=== PATIENT | female | born 1950 | race Caucasian/White ===

== ENCOUNTER 2020-03-09 14:04 | Outpatient (CLI) | payer MEDICARE, SELFPAY ==
--- NOTE | ~2020-03-09 | XR_ITS ---
XR shoulder RT min 2V, XR shoulder LT min 2V 03/09/2020 14:34 Indication: Shoulder pain Procedure: 4 views of each shoulder Comparison: 06/17/2006 Findings: There is moderate osteoarthritis of the right glenohumeral joint. There is anatomic alignme nt of the left shoulder without significant degenerative change. No fracture or traumatic malalignmen t. Visualized lung parenchyma is unremarkable. No significant soft tissue abnormality. No radiopaque foreign bodies. Impression: 1: Moderate osteoarthritis of the right glenohumeral joint. Reviewed, dictated and finalized at location B. Impression: 1: Moderate osteoarthritis of the right glenohumeral joint. Impression: 1: Moderate osteoarthritis of the right glenohumeral joint.
--- NOTE | ~2020-03-09 | XR_ITS ---
XR clavicle BI DATE: 03/09/2020 14:34 INDICATION: Fall downstairs. Bilateral clavicle and right shoulder pain TECHNIQUE: AP and angled AP views COMPARISON: None FINDINGS: There is osteopenia. No fracture or dislocation of either clavicle. IMPRESSION: No evidence of clavicle fracture Reviewed, dictated and finalized at location A.
== END 2020-03-09 14:05 | disposition home or self-care (01) ==
PROVIDERS: PCP Family Medicine; Visit Provider Family Medicine
DX: M25.512 Pain in left shoulder (principal); M19.011 Primary osteoarthritis, right shoulder
CPT/HCPCS: 73000; 73030

== ENCOUNTER → 2020-04-20 12:44 | Outpatient (CLI) | payer MEDICARE, SELFPAY ==
--- NOTE | ~2020-04-20 | US_ITS ---
EXAMINATION: US renal BI DATE: 04/20/2020 13:07 INDICATION: Nonspecific abnormal results of function study of kidney. TECHNIQUE: Multiple ultrasound grayscale images of the kidneys were obtained. COMPARISON: None. FINDINGS: The right kidney measures 10.0 x 4.7 x 4.2 cm. The left kidney measures 9.0 x 4.4 x 4.0 cm. The kidne ys demonstrate normal parenchymal echogenicity. There is no hydronephrosis. The bladder is normal. IMPRESSION: 1. Normal kidney sizes. No hydronephrosis. Reviewed, dictated and finalized at location B.
== END ==
PROVIDERS: PCP Family Medicine; Visit Provider Internal Medicine Nephrology
DX: R94.4 Abnormal results of kidney function studies (principal)
CPT/HCPCS: 76775

== ENCOUNTER 2022-07-10 16:35 | Emergency (ER) | payer MEDICARE, SELFPAY ==
--- NOTE | ~2022-07-10 | XR_ITS ---
XR lumbar spine 2-3V DATE: 07/10/2022 17:22 INDICATION: Low back pain after lifting injury TECHNIQUE: AP, lateral, coned lateral lumbosacral views COMPARISON: None FINDINGS: There is diffuse osteopenia. There is mild rotatory dextro scoliosis of the lumbar spine. There is suggestion of a transitional lumbosacral vertebra with lumbarization on the left and sacrali zation on the right. There is prominent asymmetric sclerosis along the right sacroiliac area and late ral elements in the lumbosacral spine. Asymmetric sclerosis may be due to very severe degenerative ch brayan at the right sacral iliac joint. Past fracture is not excluded. There is mild to moderate loss of height and mild anterior wedging at L1 consistent with L1 compressi on fracture of uncertain age. There is prominent degenerative change at the apophyseal joints in the lower lumbar levels. Associate d grade 1 anterolisthesis at L4-5. There is degenerative disc disease, moderate at L1-2, mild at L2-3 L3-4, L4-5 and more prominent at L 5-S1. IMPRESSION: L1 compression fracture Osteopenia Degenerative changes Reviewed, dictated and finalized at location A. PATHIC DOCTOR
[2022-07-10 16:45] VITALS: BP 154/64; PULSE 70; RESP 18; TEMP 36.5; O2SAT 100
--- NOTE | 2022-07-10 17:04 | ED.BACK ---
HPI - Back Pain/Injury General Chief Complaint: Back Pain/Injury Stated Complaint: Rt Hip and Lower Back Pain Time Seen by Provider: 07/10/22 16:52 Source: patient Mode of arrival: ambulatory Limitations: no limitations History of Present Illness HPI Narrative: Patient presents today complaining of right-sided low back pain that started yesterday after lifting a heavy door and feeling a pop. Denies radiation of pain. Denies numbness or tingling in the extremities or genitals. Denies any loss of bowel or bladder control. She currently rates her pain 06/03 and has been taking her home [place] with mild short-term relief. Related Data Home Medications Medication Instructions Recorded Confirmed ezetimibe 10 mg tablet 10 mg PO DAILY 07/10/22 07/10/22 gabapentin 300 mg capsule 300 mg PO DAILY 07/10/22 07/10/22 hydrochlorothiazide 25 mg tablet 25 mg PO DAILY 07/10/22 07/10/22 Allergies Allergy/AdvReac Type Severity Reaction Status Date / Time No Known Allergies Allergy Verified 05/09/22 12:24 Review of Systems Review of Systems: CONSTITUTIONAL: Denies body aches, fever, chills, or sweats. EYES: Denies visual changes, redness, or discharge. ENT: Denies rhinorrhea, congestion, sore throat, or otalgia. CARDIOVASCULAR: Denies chest pain, palpitations, or edema. RESPIRATORY: Denies cough or dyspnea. GASTROINTESTINAL: Denies abdominal pain, nausea, vomiting, or diarrhea. GENITOURINARY: Denies dysuria or hematuria. SKIN: Denies rash, itching, or wounds. MUSCULOSKELETAL: Denies joint pain, or myalgia.+ back pain NEUROLOGIC: Denies headache, numbness, tingling, or weakness. PSYCH: Denies depression or anxiety. [facility] Past Medical History Medical History Anxiety disorder, unspecified BMI 25.0-25.9,adult Changing skin lesion Decreased right shoulder range of motion Essential (primary) hypertension Hip pain, bilateral Insomnia Leg cramp Leg cramp Leg edema Low kidney function Mixed hyperlipidemia Need for vaccination Tobacco abuse Unilateral primary osteoarthritis, unspecified knee Visual disturbance Social History Social History Smoking packs per day: 1 Smoking cigarettes per day: 20.0 Years smoked: 50 Smoking pack-years: 50.00 Smoking status: Current every day smoker Tobacco type: cigarettes Alcohol intake: former Substance use: never Substance use type: does not use Gender identity (if verbalized by the patient): Female Sexual Orientation (if Verbalized by the Patient): Straight or Heterosexual Spiritual care concerns: No Agree to blood products: Yes Comments At time of signature, I have reviewed and agree with nursing past medical, surgical, social and family history unless otherwise noted. Please see nursing chart for further information. There is no relevant family history pertinent to the presenting complaint Exam Narrative: GENERAL: Chronically ill-appearing, well-nourished, and in no acute distress. HEAD: Normocephalic, atraumatic. EYES: EOMI. No redness or drainage. Conjunctivae normal. ENT: Mucous membranes pink and moist. NECK: Normal AROM. CHEST: No respiratory distress. MUSCULOSKELETAL: Very mild bony tenderness of the upper lumbar spine. Patient has right upper lumbar and lower thoracic paraspinal muscle tenderness, lesser to the left side. This tenderness does not extend distally to the hip/gluteals. Distal sensation intact. Saddle sensation intact. Capillary refill normal. EXTREMITIES: Normal range of motion. No edema. SKIN: Warm, dry, no rash. Capillary refill normal. Normal skin turgor. NEURO: No focal deficits. Alert and oriented x3. Gait steady with cane. PSYCH: Normal affect. No signs of depression or anxiety. Course Course Level of Care: Express Care Visit Vital Signs Vital signs: Vital Signs Temperature 97.7 F 07/10/22
== END 2022-07-10 18:00 | disposition home or self-care (01) ==
PROVIDERS: Emergency Provider Nurse Practitioner; PCP Family Medicine
DX: S32.010A Wedge compression fracture of first lumbar vertebra, initial encounter for closed fracture (principal); X50.0XXA Overexertion from strenuous movement or load, initial encounter; I10 Essential (primary) hypertension; M17.10 Unilateral primary osteoarthritis, unspecified knee; F17.210 Nicotine dependence, cigarettes, uncomplicated
CPT/HCPCS: 72100; 99213; G0463

== ENCOUNTER 2024-10-28 12:31 | Outpatient (CLI) | payer MEDICARE, SELFPAY ==
--- NOTE | ~2024-10-28 | DEXA_ITS ---
Bone Density Report Name: MYA GODOY Age: 74 Sex: Female Ethnicity: White Date of : 1950 Indication: postmenopausal; screening for osteoporosis; height loss; prior fracture; Referring Provider: BIBIANA ARRIETA Study: Bone densitometry was performed. Exam Date: October 28, 2024 Accession number: [id number] Bone Density: Region BMD T-score Z-score Classification AP Spine(L1-L4) 0.960 -0.8 1.6 Normal Femoral Neck (Left) 0.670 -1.6 0.5 Osteopenia Total Hip (Left) 0.658 -2.3 -0.5 Osteopenia World Health Organization criteria for BMD impression classify patients as: Normal (T-score at or above -1.0), Osteopenia (T-score between -1.0 and -2.5), or Osteoporosis (T-score at or below -2.5). Clinical Information Provided by Patient: Have had a previous hip or vertebral fracture Has had a low trauma fracture Smokes Patient maximum height was 66 Menopause Age: 49 No regular weight bearing exercise Does not regularly consume dairy products Onset of menses at age 12 Number of children 2 Impression: The patient has low bone mass, based on the Left Total Hip T-score. The patient has risk factors, including: smoking, previous fracture. Discussion: INCREASED RISK OF FRACTURE DUE TO HISTORY OF FRACTURE. The patient's previous fracture puts the patient at high risk of a future fracture. In untreated patients, the risk of osteoporotic fracture increases approximately two-fold for each 1.0 SD decrease in T-score. Low bone density is not the only risk factor for fracture; also consider factors such as patient's age, frailty or poor health, risk of falling, risk of injury, previous osteoporotic fracture, family history of osteoporosis, cigarette smoking, low body weight, etc. Not everyone with a low trauma fracture has osteoporosis; osteomalacia and other metabolic bone disorders should also be considered. Patients who have osteoporosis should be evaluated for specific diseases and conditions (secondary causes) that may cause or contribute to bone loss and fracture risk. National Osteoporosis Foundation (NOF) recommends pharmacologic intervention for patients with a prior hip or vertebral fracture regardless of BMD T-score. The patient should follow a healthful lifestyle (good nutrition with adequate calcium and vitamin D, and appropriate weight-bearing exercise). Follow-Up: Consider a repeat BMD and Vertebral Fracture Assessment (VFA) exam in 2 years or sooner if medically necessary, to reassess this patient's status. Reported by: ROBERTO CARLOS on 10/28/2024 12:56:00 PM. Reviewed, dictated and finalized at location A. [facility]
--- OUTSIDE RECORDS SUMMARY | 2024-10-28 13:43 | XMS_ITS | Clinical Summary ---
Author Organization [facility] Address [address] [place] [address] Phone Care Team Providers Care Window Tinter Name Role Phone Brady Michael MD Primary Care Provider [phone] Allergies No known active allergies Medications Medication Sig Dispensed Refills Start Date End Date Status propranolol-hydroCHLOR Othiazide (INDERIDE) 80-25 MG per tablet TAKE 1 TABLET BY MOUTH ONCE 09/09/2019 Active HYDROcodone-acetaminop hen (NORCO) 7.5-325 MG per tablet 10/07/2019 Active gabapentin (NEURONTIN) 300 MG capsule Take by mouth 1 (one) time each day 08/23/2019 Active ezetimibe (ZETIA) 10 MG tablet Take 10 mg by mouth 1 (one) time each day 09/13/2019 Active diphenoxylate-atropine (LOMOTIL) 2.5-0.025 MG per tablet diphenoxylate-atro pine 2.5 mg-0.025 mg tablet Active Active Problems Problem Noted Date Diagnosed Date Persistent proteinuria 10/20/2020 Stage 3a chronic kidney disease 10/11/2019 Arthritis of right knee 10/11/2019 Immunizations Name Administration Dates Next Due Influenza TIV (IM) 04/25/2019 Pneumococcal Conjugate 04/25/2018 Family History Medical History Relation Comments Kidney disease Neg Hx Social History Tobacco Use Types Packs/Day Years Used Date Smoking Tobacco: Light Smoker Smokeless Tobacco: Never Comments:half pack per day Alcohol Use Standard Drinks/Week Comments Yes 0 (1 standard drink = 0.6 oz pur e alcohol) once a year Sex and Gender Information Value Date Recorded Sex Assigned at Not on file Gender Identity Not on file Sexual Orientation Not on file Last Filed Vital Signs Vital Sign Reading Time Taken Comments Blood Pressure 118/70 04/26/2020 1:16 PM CDT Pulse 72 04/26/2020 1:16 PM CDT Temperature 35.6 C (96 F) 04/26/2020 1:16 PM CDT Respiratory Rate - - Oxygen Saturation - - Inhaled Oxygen Concentration - - Weight 69.4 kg (153 lb) 04/26/2020 1:16 PM CDT Height 167.6 cm (5' 6 ) 04/26/2020 1:16 PM CDT Body Mass Index 24.69 04/26/2020 1:16 PM CDT Plan of Treatment Health Maintenance Due Date Last Done Comments Pneumococcal PPSV23/PCV13 65 + Years / Low and Medium Risk (1 of 4 - PCV) 2014 Influenza Vaccine (#1) 2024 04/25/2019 Care Teams Window Tinter Relationship Specialty Start Date End Date Brady Michael MD [address] [place] [address] PCP - General Family Medicine 09/13/19
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
== END 2024-10-28 12:32 | disposition home or self-care (01) ==
LOC: CHSIMG 12:32
PROVIDERS: PCP Family Medicine; Visit Provider Family Medicine
DX: S32.010A Wedge compression fracture of first lumbar vertebra, initial encounter for closed fracture (principal); Z78.0 Asymptomatic menopausal state; M85.89 Other specified disorders of bone density and structure, multiple sites
CPT/HCPCS: 77080